=== PATIENT | female | born 1985 | race African-American/Black ===

== ENCOUNTER 2021-03-14 00:52 | Emergency (ER) | payer MEDICAID, OTHER ==
[~2021-03-14] VITALS: Ht 165.1 cm; Wt 77.0 kg
[2021-03-14 01:14] VITALS: BP 150/85
[2021-03-14] MEDS ORDERED: LIDOCAINE HCL/PF 1% 10 MG/ML 5ML VIAL IJ ONE (01:30)
[2021-03-14] MEDS ORDERED: BACITRACIN ZINC OINT UDPKT TOP ONE (01:30)
[2021-03-14] MEDS ORDERED: ACETAMINOPHEN 325MG TABLET PO ONE (01:30)
[2021-03-14] MEDS ORDERED: IBUPROFEN 400MG TABLET PO ONE (01:30)
[2021-03-14] MEDS ORDERED: BO1 TP (02:13)
== END 2021-03-14 02:40 | disposition home or self-care (01) ==
LOC: ER 00:52
DX: S61.041A Puncture wound with foreign body of right thumb without damage to nail, initial encounter (principal); X58.XXXA Exposure to other specified factors, initial encounter; Y93.89 Activity, other specified; Y92.098 Other place in other non-institutional residence as the place of occurrence of the external cause
CPT/HCPCS: 73130; 99284; J3490

== ENCOUNTER 2023-02-09 07:31 | Emergency (ER) | payer MEDICAID, OTHER ==
[~2023-02-09] VITALS: Ht 160 cm; Wt 91.0 kg
[~2023-02-09 07:31] MED LIST: BO1 TP
[2023-02-09 07:44] VITALS: BP 131/106
[2023-02-09] MEDS ORDERED: TOPUD PO (10:45)
[2023-02-09] MEDS ORDERED: ACETAMINOPHEN 325MG TABLET PO ONE (10:45)
[2023-02-09] MEDS ORDERED: LIDO5JEL8 MM (10:57)
== END 2023-02-09 11:14 | disposition home or self-care (01) ==
LOC: ER 07:41
DX: J02.8 Acute pharyngitis due to other specified organisms (principal); M54.2 Cervicalgia; B97.89 Other viral agents as the cause of diseases classified elsewhere
CPT/HCPCS: 70490; 87070; 87430; 99284

== ENCOUNTER 2023-06-18 01:45 | Emergency (ER) | payer MEDICAID, OTHER ==
[~2023-06-18] VITALS: Ht 177.8 cm; Wt 82.0 kg
[~2023-06-18 01:45] MED LIST changes: +LIDO5JEL8 MM; +TOPUD PO
[2023-06-18 01:50] VITALS: O2SAT 98
[2023-06-18] MEDS ORDERED: METOCLOPRAMIDE HCL 10MG/2ML VIAL IV ONE (05:00)
[2023-06-18] MEDS ORDERED: SODIUM CHLORIDE 0.9% 1,000 ML IV ONE (05:00)
[2023-06-18] MEDS ORDERED: DIPHENHYDRAMINE 50MG/ML VIAL IV ONE (05:00)
[2023-06-18 06:06] LABS: CHLORIDE 109 mEq/L (98-107); INDEX HEMOLYSI 1 (1-3); INDEX ICTERIC 1 (1-4); INDEX LIPEMIC 1 (1-3); POTASSIUM 3.7 mEq/L (3.5-5.1); SODIUM 138 mEq/L (136-145)
[2023-06-18 06:14] LABS: BASOPHILS % 0.4 % (0.0-2.0); EOSINOPHILS % 0.8 % (0.0-5.0); HEMATOCRIT. 31.8 % (36.0-48.0); HEMOGLOBIN. 10.7 g/dL (12.0-16.0); LYMPHOCYTES % 20.5 % (20.0-50.0); MEAN CORPUSCULAR HEMOGLOBIN 28.6 pg (28.0-32.0); MEAN CORPUSCULAR HGB CONC 33.6 g/dL (31.0-37.0); MEAN PLATELET VOLUME 8.3 fl (7.4-10.4); MONOCYTES % 6.1 % (2.0-8.0); NEUTROPHILS % 72.2 % (40.0-76.0); PLATELET 316 x1000/uL (130-400); RED BLOOD CELL COUNT 3.75 mill/uL (4.2-5.4); RED CELL DISTRIBUTION WIDTH 14.6 % (11.6-14.6); WHITE BLOOD COUNT 12.6 x1000/uL (4.5-11.0)
[2023-06-18 06:17] LABS: ALANINE AMINOTRANSFERASE 14 IU/L (13-61); ALBUMIN 2.9 g/dL (3.4-5.0); ASPARTATE AMINOTRANSFERASE 16 IU/L (15-37); BILIRUBIN TOTAL 0.2 mg/dL (0.1-1.0); CARBON DIOXIDE 24 mEq/L (21-32); CREATININE 0.6 mg/dL (0.6-1.3); GLUCOSE 110 mg/dL (70-105); PROTEIN TOTAL 6.8 g/dL (6.0-8.3); UREA NITROGEN BLOOD 10 mg/dL (7-21)
[2023-06-18 06:24] LABS: TROPONIN I HIGH SENSITIVITY < 4 ng/L (<54)
[2023-06-18 07:38] VITALS: BP 145/89; PULSE 84; RESP 18; TEMP 98.4
== END 2023-06-18 07:43 | disposition home or self-care (01) ==
LOC: ER 01:45
DX: R51.9 Headache, unspecified (principal); R06.02 Shortness of breath
CPT/HCPCS: 99285; 70450; 71045; 80053; 85025; 85379; 84484; 36415; 93005; J1200; J2765; J7030

== ENCOUNTER 2023-06-18 16:03 | Emergency (ER) | payer OTHER ==
[~2023-06-18] VITALS: Ht 170.2 cm; Wt 80.0 kg
[2023-06-18 16:12] VITALS: O2SAT 98
[2023-06-18 19:38] VITALS: BP 131/80; PULSE 74; RESP 19; TEMP 98.3
== END 2023-06-18 19:41 | disposition home or self-care (01) ==
LOC: ER 16:03
DX: R51.9 Headache, unspecified (principal)
CPT/HCPCS: 99283